=== PATIENT | female | born 1955 | race Caucasian/White ===

== ENCOUNTER 2023-03-28 18:42 | Emergency (ER) | payer MEDICARE ==
[2023-03-28 19:00] VITALS: BP 158/74; PULSE 74
[2023-03-28] MEDS ORDERED: Acetaminophen/HYDROcodone 325-5 MG Tab ONE (19:30)
== END 2023-03-28 19:43 | disposition home or self-care (01) ==
LOC: LB.ED 18:42
DX: S82.52XA Displaced fracture of medial malleolus of left tibia, initial encounter for closed fracture (principal); Z88.1 Allergy status to other antibiotic agents; Z88.0 Allergy status to penicillin; Z88.2 Allergy status to sulfonamides; W19.XXXA Unspecified fall, initial encounter; Y92.89 Other specified places as the place of occurrence of the external cause; Y99.0 Civilian activity done for income or pay
CPT/HCPCS: 73610-LT; 99283; A9270-GY

== ENCOUNTER 2024-10-26 08:47 | Day surgery (SDC) | payer MEDICARE ==
[~2024-10-26 08:47] MED LIST: Metoclopramide 10 MG/2 ML SDV IV PRN; Sodium Chloride 0.9% 1,000 ML IV SCH
[2024-10-26] MEDS: Sodium Chloride 0.9% 1,000 ML IV SCH (09:59)
[2024-10-26] MEDS ORDERED: Propofol 200 MG/20 ML SDV ONE (10:15)
[2024-10-26 10:47] VITALS: BP 115/75; PULSE 76
== END 2024-10-26 12:00 | disposition home or self-care (01) ==
LOC: LB.SDS 08:47
PROVIDERS: ATTEND Surgery
DX: Z12.11 Encounter for screening for malignant neoplasm of colon (principal); E11.29 Type 2 diabetes mellitus with other diabetic kidney complication; R80.9 Proteinuria, unspecified; G47.9 Sleep disorder, unspecified; E78.5 Hyperlipidemia, unspecified; Z79.84 Long term (current) use of oral hypoglycemic drugs; Z79.899 Other long term (current) drug therapy; Z88.2 Allergy status to sulfonamides; Z88.0 Allergy status to penicillin; Z88.1 Allergy status to other antibiotic agents; Z88.8 Allergy status to other drugs, medicaments and biological substances
CPT/HCPCS: 82947; J2704; J7030